=== PATIENT | female | born 1960 | race American Indian/Alaskan Native ===

== ENCOUNTER 2018-03-23 14:07 | Emergency (ER) | payer OTHER ==
[2018-03-23 14:17] VITALS: BP 134/83
[2018-03-23] MEDS ORDERED: TORADOL IM ONE (14:41)
--- NOTE | 2018-03-23 14:44 | Emergency Department Report ---
Chief Complaint: Extremity Injury, Lower Stated Complaint: LEFT HIP PAIN Time Seen by Provider: 03/23/18 14:25 - HPI History of Present Illness: 57-year-old after [place] female presents to the emergency department with complaint of left hip pain that has been going on since last night. The patient has a history of chronic back and hip pains and has been told in the past that it is all due to osteoarthritis. She usually gets a Toradol shot and another shot from her PCP, Dr. Summers. She also follows with a Dr. Kumar, orthopedics. She denies any recent trauma. Patient says she has not had any x- ray imaging of her hip in a long time. The pain worsens with movement and she is having difficulty bearing weight and with ambulation. - ROS Review of Systems: Positive for hip pain Negative for fever, numbness, paresthesias - Exam Vital Signs: Vital Signs 03/23/18 14:13 Temperature 98.6 F Pulse Rate 91 H Respiratory 18 Rate Blood Pressure 134/83 O2 Sat by Pulse 98 Oximetry Physical Exam: There is tenderness to palpation to the left hip. Heart and lung sounds are normal to auscultation. MSE screening note: Focused history and physical exam performed. Due to findings the following was ordered: Patient will have an x-ray of the left hip. She'll be given a Toradol shot. ED Disposition for MSE Condition: Stable
--- NOTE | 2018-03-23 14:52 | Emergency Department Report ---
ED Lower Extremity HPI - General Chief Complaint: Extremity Injury, Lower Stated Complaint: LEFT HIP PAIN Time Seen by Provider: 03/23/18 14:25 Source: patient Mode of arrival: Ambulatory Limitations: No Limitations - History of Present Illness Initial Comments: AC HIP PAIN SEES PCP AND ORTHO NO NEW FALL OTC MOTRIN USUALLY HELPS LAST PM IT DID NOT SHE GETS A TORADOL INJ AT ORTHO AND THAT LASTS HER MONTHS SHE SAYS SHE GETS ANOTHER INJECTION WHICH BASED ON WHAT PT STATES I SUSPECT IS JOINT INJECTION MD Complaint: other (AC HIP PAIN) -: Gradual Severity: moderate Improves With: NSAID, other (MOTRIN USUALLY HELPS LAST NIGHT DID NOT) Treatments Prior to Arrival: NSAIDS - Related Data Previous Rx's Medication Instructions Recorded Last Taken Type Ketorolac [Toradol] 10 mg PO Q8H PRN #10 tablet 03/23/18 Unknown Rx Allergies Allergy/AdvReac Type Severity Reaction Status Date / Time amoxicillin Allergy Unknown Verified 03/23/18 14:17 ED Review of Systems ROS: Stated complaint: LEFT HIP PAIN Other details as noted in HPI Comment: All other systems reviewed and negative Constitutional: denies: chills Eyes: denies: eye pain ENT: denies: ear pain Respiratory: denies: cough, orthopnea Cardiovascular: denies: chest pain, palpitations, dyspnea on exertion Endocrine: denies: excessive sweating, flushing, intolerance to cold Gastrointestinal: denies: abdominal pain, nausea, vomiting Genitourinary: denies: urgency, dysuria Musculoskeletal: as per HPI, arthralgia, other (HIP PAIN). denies: back pain, joint swelling, myalgia Skin: denies: rash, lesions Neurological: denies: headache, weakness Psychiatric: denies: anxiety, depression Hematological/Lymphatic: denies: easy bleeding ED Past Medical Hx - Past Medical History Hx Hypertension: Yes Hx Arthritis: Yes (in back) Additional medical history: recurrent left hip pain, PT r/t back pain - Surgical History Additional Surgical History: partial hysterectomy, R/L rotator cuff repair - Family History Family history: no significant - Social History Smoking Status: Never Smoker Substance Use Type: None - Medications Home Medications: Home Medications Medication Instructions Recorded Confirmed Last Taken Type Ketorolac [Toradol] 10 mg PO Q8H PRN #10 tablet 03/23/18 Unknown Rx ED Physical Exam - General Limitations: No Limitations General appearance: alert - Head Head exam: Present: normocephalic - Eye Eye exam: Present: PERRL - ENT ENT exam: Present: mucous membranes moist - Neck Neck exam: Present: normal inspection. Absent: tenderness, meningismus - Respiratory Respiratory exam: Present: normal lung sounds bilaterally - Cardiovascular Cardiovascular Exam: Present: regular rate, normal heart sounds - GI/Abdominal GI/Abdominal exam: Present: soft, normal bowel sounds - Rectal Rectal exam: Present: deferred - Extremities Exam Extremities exam: Present: normal inspection, normal capillary refill, other (L HIP PAIN; LIMITED ROM DUE TO PAIN. CAN WALK ). Absent: tenderness, pedal edema , joint swelling - Back Exam Back exam: Present: normal inspection. Absent: tenderness, CVA tenderness (R), CVA tenderness (L) - Neurological Exam Neurological exam: Present: alert, oriented X3, CN II-XII intact, motor sensory deficit - Psychiatric Psychiatric exam: Present: normal affect, normal mood - Skin Skin exam: Present: warm, dry, intact, normal color. Absent: rash ED Course Vital Signs 03/23/18 14:13 Temperature 98.6 F Pulse Rate 91 H Respiratory 18 Rate Blood Pressure 134/83 O2 Sat by Pulse 98 Oximetry - Reevaluation(s) Reevaluation #1: 03/23/18 15:38 REASSESSMENT WITH DEC IN PAIN W TORADOL INJECTION DISCUSSED USE OF PO TORADOL WITH PT WELL FOLLOW UP WITH ORTHO AND PCP FOR ONGOING CARE AND MANAGEMENT OF HER PAIN. ED Lower Extremity MDM - Radiology Data Radiology results: report reviewed, image reviewed - Medical Decision Making XRAY NO ACUTE PROCESS; DJD - Differential Diagnosis L HIP PAIN RO FRACTURE Critical care attestation.: If time is entered above; I have spent that time in minutes in the direct care of this critically ill patient, excluding procedure time. ED Disposition Clinical Impression: Chronic hip pain, Arthritis Disposition: TO HOME OR SELFCARE Is pt being admited?: No Does the pt Need Aspirin: No Condition: Stable Instructions: Chronic Pain (ED) Additional Instructions: FOLLOW UP WITH PCP AND ORTHO ACTIVITY TOLERATED MEDS PER ROUTINE DIET TOLERATED WARM COMPRESSES MAY HELP Prescriptions: Ketorolac [Toradol] 10 mg PO Q8H PRN #10 tablet PRN Reason: Pain Time of Disposition: 15:25
--- NOTE | 2018-03-23 15:19 | XRay Report ---
FINAL REPORT EXAM: XR HIP 2-3V LT HISTORY: left hip pain TECHNIQUE: AP view of pelvis and frogleg lateral view of left hip. PRIORS: None. FINDINGS: Degenerative changes in the bilateral hip joints and lumbosacral spine. Sclerotic changes also noted about the pubic symphysis region. No apparent fracture or dislocation. Soft tissues grossly unremarkable. IMPRESSION: 1. No acute osseous abnormality. 2. Degenerative changes.
== END 2018-03-23 15:59 | disposition home or self-care (01) ==
LOC: ED 14:07
DX: M13.852 Other specified arthritis, left hip (principal); G89.29 Other chronic pain; I10 Essential (primary) hypertension; Z90.711 Acquired absence of uterus with remaining cervical stump
CPT/HCPCS: 73502; 96372; 99283; J1885

== ENCOUNTER 2018-11-26 20:02 | Observation (INO) | payer OTHER ==
--- NOTE | 2018-11-26 20:56 | Emergency Department Report ---
Blank Doc - Documentation Documentation: pt presents with substernal CP that began three days ago describes it as a tightness states it lasts for a couple minutes no radiation of the pain (+) palpitations feels SOB when she has the pain (+) nausea no emesis PMHx GERD, HTN no personal hx of cardiac issues had a normal stress test 4 months ago former smoker quit 15 years ago occ drinker no drug use
[2018-11-26 21:33] LABS: Basophils # (Auto) 0.1 K/mm3 (0.0-0.1); Basophils % (Auto) 0.8 % (0.0-1.8); Eosinophils # (Auto) 0.1 K/mm3 (0.0-0.4); Eosinophils % (Auto) 2.3 % (0.0-4.3); Hemoglobin 12.1 gm/dl (10.1-14.3); Lymphocytes # (Auto) 2.8 K/mm3 (1.2-5.4); Lymphocytes % (Auto) 42.1 % (13.4-35.0); Mean Corpuscular HGB Conc 35 % (30-34); Mean Corpuscular Volume 97 fl (79-97); Monocytes # (Auto) 0.7 K/mm3 (0.0-0.8); Monocytes % (Auto) 10.9 % (0.0-7.3); Platelet Count 250 K/mm3 (140-440); Red Blood Count 3.61 M/mm3 (3.65-5.03); Red Cell Distribution Width 12.9 % (13.2-15.2)
[2018-11-26 21:44] LABS: INR 0.91 (0.87-1.13)
[2018-11-26 21:45] LABS: Partial Thromboplastin Time 28.8 Sec. (24.2-36.6)
[2018-11-26 21:50] LABS: BUN/Creatinine Ratio 34; Blood Urea Nitrogen 17 mg/dL (7-17); Calcium 9.1 mg/dL (8.4-10.2); Hemolysis Index 2
--- NOTE | 2018-11-26 22:20 | Emergency Department Report ---
ED Chest Pain HPI - General Chief Complaint: Chest Pain Stated Complaint: CHEST PAIN Time Seen by Provider: 11/26/18 20:45 Source: patient Mode of arrival: Ambulatory Limitations: No Limitations - History of Present Illness Initial Comments: Patient is a 57-year-old female that presents emergency room with complaints of chest pain and shortness of breath. Patient states her chest. It has been going on for approximate 4 days and is intermittent. Patient states it came back approximately 6 hours ago. Patient states her chest pain is better with re st and worse with exertion. Patient states her chest pain is a 6 out of 10. Patient states she has some nausea. Patient states as diaphoresis. Patient states her shortness of breath or is worse with exertion. Patient states she had a recent long travel in a car MD Complaint: chest pain Onset: during rest Pain Location: substernal, left chest Pain Radiation: none Severity: moderate Severity scale (0 -10): 6 Quality: heaviness, sharp Consistency: intermittent Improves With: rest Worsens With: exertion Context: recent travel re: nausea, diaphoresis, dyspnea. denies: vomting, sense of impending doom Other Symptoms: denies: cough, fever, syncope, rash, acid taste in mouth, leg swelling, palpitations, burping Treatments Prior to Arrival: none Aspirin use within the Past 7 Days: (0) No - Related Data On Oral Contraceptives: No Home Medications Medication Instructions Recorded Confirmed Last Taken hydroCHLOROthiazide [Hctz] 12.5 mg PO QDAY 11/27/18 11/27/18 Unknown Allergies Allergy/AdvReac Type Severity Reaction Status Date / Time amoxicillin Allergy Unknown Verified 03/23/18 14:17 Heart Score - HEART Score History: Moderately suspicious EKG: Normal Age: 45-65 Risk factors: No known risk factors Troponin: < normal limit HEART Score: 2 ED Review of Systems ROS: Stated complaint: CHEST PAIN Other details as noted in HPI Constitutional: denies: chills, fever Eyes: denies: eye pain, eye discharge, vision change ENT: denies: ear pain, throat pain Respiratory: shortness of breath. denies: cough, wheezing Cardiovascular: chest pain, dyspnea on exertion. denies: palpitations Endocrine: no symptoms reported Gastrointestinal: denies: abdominal pain, nausea, diarrhea Genitourinary: denies: urgency, dysuria, discharge Musculoskeletal: denies: back pain, joint swelling, arthralgia Skin: denies: rash, lesions Neurological: denies: headache, weakness, paresthesias Psychiatric: denies: anxiety, depression Hematological/Lymphatic: denies: easy bleeding, easy bruising ED Past Medical Hx - Past Medical History Previous Medical History?: Yes Hx Hypertension: Yes Hx GERD: Yes Hx Arthritis: Yes (in back) Additional medical history: recurrent left hip pain, PT r/t back pain - Surgical History Past Surgical History?: Yes Additional Surgical History: partial hysterectomy, R/L rotator cuff repair - Family History Family history: no significant - Social History Smoking Status: Former Smoker Substance Use Type: None - Medications Home Medications: Home Medications Medication Instructions Recorded Confirmed Last Taken Type hydroCHLOROthiazide [Hctz] 12.5 mg PO QDAY 11/27/18 11/27/18 Unknown History ED Physical Exam - General Limitations: No Limitations General appearance: alert, in no apparent distress - Head Head exam: Present: atraumatic, normocephalic - Eye Eye exam: Present: normal appearance - ENT ENT exam: Present: mucous membranes moist - Neck Neck exam: Present: normal inspection - Respiratory Respiratory exam: Present: normal lung sounds bilaterally. Absent: respiratory distress, wheezes, rales, rhonchi, chest wall tenderness - Cardiovascular Cardiovascular Exam: Present: regular rate, normal rhythm. Absent: systolic murmur, diastolic murmur, rubs, gallop - GI/Abdominal GI/Abdominal exam: Present: soft, normal bowel sounds. Absent: distended, tenderness - Extremities Exam Extremities exam: Present: normal inspection - Back Exam Back exam: Present: normal inspection - Neurological Exam Neurological exam: Present: alert, oriented X3 - Psychiatric Psychiatric exam: Present: normal affect, normal mood - Skin Skin exam: Present: warm, dry, intact, normal color. Absent: rash ED Course Vital Signs 11/26/18 11/26/18 11/26/18 20:56 22:25 23:00 Temperature 98.4 F 98 F Pulse Rate 76 69 60 Respiratory 16 16 10 L Rate Blood Pressure 126/62 Blood Pressure 115/58 119/67 [Left] O2 Sat by Pulse 99 99 98 Oximetry - Reevaluation(s) Reevaluation #1: Discussed all results with patient. Patient will be admitted to the hospitalist service. Patient agrees to plan of care. 11/26/18 23:31 - Consultations Consultation #1: Hospitalist consulted for admission. Hospitalist to admit patient. Hospitalist to assume care patient. 11/26/18 23:37 ROCIO score - Rocio Score Age > 65: (0) No Aspirin use within the Past 7 Days: (0) No 3 or more CAD Risk Factors: (0) No 2 or more Angina events in past 24 hrs: (1) Yes Known CAD with more than 50% Stenosis: (0) No Elevated Cardiac Markers: (0) No ST Deviation Greater than 0.5mm: (0) No ROCIO Score: 1 ED Medical Decision Making - Lab Data Result diagrams: 11/26/18 21:04 11/26/18 21:04 - EKG Data -: EKG Interpreted by Me EKG shows normal: sinus rhythm, axis, intervals, QRS complexes, ST-T waves Rate: normal - Radiology Data Radiology results: report reviewed PROCEDURE: XR CHEST ROUTINE 2V TECHNIQUE: PA and lateral chest radiographs were obtained. HISTORY: Chest Pain COMPARISONS: None. FINDINGS: Heart: Normal. Mediastinum/Vessels: Normal. Lungs/Pleural space: Lungs are hyperinflated. There are no confluent infiltrates or mass lesions. Pleural spaces are clear.. Bony thorax: No acute osseous abnormality. IMPRESSION: COPD No acute pulmonary process. - Medical Decision Making Patient is a 57-year-old female that presents to [facility] with chest pain, SALMERON and shortness of breath. Patient was admitted to the hospitalist service. Patient's initial cardiac workup negative. Troponin negative. EKG normal. Chest x-ray negative except for COPD changes. Patient had a d-dimer is negative. - Differential Diagnosis SOB. SALMERON. Chest pain. ACS. PE. Critical Care Time: Yes Critical care attestation.: If time is entered above; I have spent that time in minutes in the direct care of this critically ill patient, excluding procedure time. Critical Care Time: 35 minutes ED Disposition Clinical Impression: SOB (shortness of breath), SALMERON (dyspnea on exertion) Chest pain Qualifiers: Chest pain type: unspecified Qualified Code(s): R07.9 - Chest pain, unspecified Disposition: OP ADMIT IP TO THIS HOSP Is pt being admited?: Yes Does the pt Need Aspirin: No Condition: Critical Time of Disposition: 23:36
--- NOTE | 2018-11-26 23:07 | XRay Report ---
PROCEDURE: XR CHEST ROUTINE 2V TECHNIQUE: PA and lateral chest radiographs were obtained. HISTORY: Chest Pain COMPARISONS: None. FINDINGS: Heart: Normal. Mediastinum/Vessels: Normal. Lungs/Pleural space: Lungs are hyperinflated. There are no confluent infiltrates or mass lesions. Pl eural spaces are clear.. Bony thorax: No acute osseous abnormality. IMPRESSION: COPD No acute pulmonary process. This document is electronically signed by Fran Shaw MD., November 26 2018 11:05:57 PM ET
--- NOTE | 2018-11-26 23:47 | History and Physical Report ---
History of Present Illness Date of examination: 11/26/18 History of present illness: 57 -year-old man with a history of hypertension, GERD comes to the emergency room with complaints of chest pain, located in the epigastric area that started 4 days ago. She states that it's sharp, tight sensation, intermittent every 2 minutes, intensity 5/10, no radiation, cannot identify exacerbating factors. Admits to nausea, shortness of breath, palpitation, no diaphoresis. She had a stress test 5 months ago at [facility] which was negative. She is noncompliant with medication for GERD Review of systems Constitutional: no weight loss, chills, fever Ears, eyes, nose, mouth and throat: no nasal congestion, no nasal discharge, no sinus pressure, no vision change, no red eye. Neck: No neck pain or rigidity. Cardiovascular:+palpitations Respiratory: no cough, +shortness of breath Gastrointestinal: no hematochezia, abdominal pain Genitourinary : no frequency , no hematuria Musculoskeletal: no joint swelling or muscle ache Integumentary: no rash, no pruritis Neurological: no parathesias, no focal weakness Endocrine: no cold or heat intolerance, no polyuria or polydipsia Hematologic/Lymphatic: no easy bruising, no easy bleeding, no gland swelling Allergic/Immunologic: no urticaria, no angioedema. PAST MEDICAL HISTORY:hypertension, GERD PAST SURGICAL HISTORY: Rotator cuff partial hysterectomy SOCIAL HISTORY: Denies alcohol, drugs, tobacco FAMILY HISTORY: Hypertension Medications and Allergies Allergies Allergy/AdvReac Type Severity Reaction Status Date / Time amoxicillin Allergy Unknown Verified 03/23/18 14:17 Home Medications Medication Instructions Recorded Confirmed Last Taken Type Pantoprazole [Protonix] 40 mg PO QDAY #14 tablet 11/27/18 Unknown Rx hydroCHLOROthiazide [Hctz] 12.5 mg PO QDAY 11/27/18 11/27/18 Unknown History Exam - Physical Exam Narrative exam: General Apperance: The patient lying in bed, breathing comfortable HEENT: Normocephalic, atraumatic. Pupils equally round and reactive to light, EOMI, no sclericterus or JVD or thyromegaly or nodule. , no carotid bruit, mucous membranes moist, no exudate or erythema Heart: S1-S2, regular is rhythm Lungs: Clear to auscultation bilaterally, breathing comfortable Abdomen: Positive bowel sounds, soft, nontender, nondistended, no organomegaly Extremities: No edema cyanosis clubbing Skin: no rash, nodule, warm and dry Neuro: cranial nerves 2-12 intact, speech is fluent, motor/sensory intact - Constitutional Vitals: Temp Pulse Resp BP Pulse Ox 98 F 60 10 L 126/62 98 11/26/18 22:25 11/26/18 23:00 11/26/18 23:00 11/26/18 23:00 11/26/18 23:00 Results - Labs CBC & Chem 7: 11/27/18 05:37 11/27/18 05:37 Labs: Abnormal lab results 11/26/18 11/26/18 Range/Units 21:04 21:04 RBC 3.61 L (3.65-5.03) M/mm3 MCH 34 H (28-32) pg MCHC 35 H (30-34) % RDW 12.9 L (13.2-15.2) % Lymph % (Auto) 42.1 H (13.4-35.0) % [place] % (Auto) 10.9 H (0.0-7.3) % Creatinine 0.5 L (0.7-1.2) mg/dL Glucose 102 H (65-100) mg/dL - Imaging and Cardiology Chest x-ray: report reviewed Assessment and Plan Assessment Atypicl chest pain hypertension GERD Plan Admit to medicine Check cardiac enzymes, consult cardiology Start prevacid, asa, DVT prophalaxis Continue appropriate outpatient medications
[2018-11-27] MEDS ORDERED: ZOFRAN IV PRN (00:38)
[2018-11-27] MEDS ORDERED: SODIUM CHLORIDE FLUSH SYRINGE 10 ML IV PRN (00:38)
[2018-11-27] MEDS ORDERED: TYLENOL PO PRN (00:38)
[2018-11-27] MEDS ORDERED: MORPHINE IV PRN (00:38)
[2018-11-27] MEDS ORDERED: AMBIEN PO PRN (00:51)
[2018-11-27 06:11] LABS: Hematocrit 32.8 % (30.3-42.9); Hemoglobin 11.6 gm/dl (10.1-14.3); Mean Corpuscular HGB Conc 36 % (30-34); Mean Corpuscular Volume 96 fl (79-97); Platelet Count 227 K/mm3 (140-440)
[2018-11-27 06:35] LABS: BUN/Creatinine Ratio 28; Blood Urea Nitrogen 14 mg/dL (7-17); Calcium 8.8 mg/dL (8.4-10.2); Hemolysis Index 7
[2018-11-27] MEDS ORDERED: K-DUR PO NR (09:00)
[2018-11-27 09:13] LABS: Basophils % (Manual) 0 % (0.0-1.8); Platelet Estimate Consistent w Auto; RBC Morphology Normal; Total Cells Counted 100
[2018-11-27] MEDS ORDERED: SODIUM CHLORIDE FLUSH SYRINGE 10 ML IV SCH (10:00)
[2018-11-27] MEDS ORDERED: HCTZ PO SCH (10:00)
[2018-11-27] MEDS ORDERED: ASPIRIN PO SCH (10:00)
[2018-11-27] MEDS ORDERED: PROTONIX PO SCH (10:00)
[2018-11-27] MEDS ORDERED: LOVENOX SUB-Q SCH ×2 (10:00)
--- NOTE | 2018-11-27 10:22 | Consultation ---
History of Present Illness Consult date: 11/27/18 Consult reason: chest pain History of present illness: This is a 57 year old woman with chronic hypertension who presented with chest pain, admitted for further evaluation. Patient relates her chest pain as symptoms similar to GERD. She denies unusual shortness of breath, denies palpitations and she had no syncope. Troponins are negative thus far and her ECG is benign, a normal sinus rhythm. A cardiac consultation has been requested for chest pain evaluation and recommendations. Medications and Allergies Allergies Allergy/AdvReac Type Severity Reaction Status Date / Time amoxicillin Allergy Unknown Verified 03/23/18 14:17 Home Medications Medication Instructions Recorded Confirmed Last Taken Type hydroCHLOROthiazide [Hctz] 12.5 mg PO QDAY 11/27/18 11/27/18 Unknown History Active Meds: Active Medications Acetaminophen (Tylenol) 650 mg PO Q4H PRN PRN Reason: Pain MILD(1-3)/Fever >100.5/BARRIGA Aspirin (Aspirin) 325 mg PO QDAY DOMINIC Enoxaparin Sodium (Lovenox) 40 mg SUB-Q QDAY@1000 DOMINIC Hydrochlorothiazide (Hctz) 12.5 mg PO QDAY DOMINIC Morphine Sulfate (Morphine) 2 mg IV Q4H PRN PRN Reason: Pain, Moderate (4-6) Ondansetron HCl (Zofran) 4 mg IV Q8H PRN PRN Reason: Nausea And Vomiting Pantoprazole Sodium (Protonix) 40 mg PO QDAY DOMINIC Sodium Chloride (Sodium Chloride Flush Syringe 10 Ml) 10 ml IV BID DOMINIC Sodium Chloride (Sodium Chloride Flush Syringe 10 Ml) 10 ml IV PRN PRN PRN Reason: LINE FLUSH Zolpidem Tartrate (Ambien) 5 mg PO QHS PRN PRN Reason: Sleep Physical Examination Vital Signs Temp Pulse Resp BP Pulse Ox 98.4 F 76 16 115/58 99 11/26/18 20:56 11/26/18 20:56 11/26/18 20:56 11/26/18 20:56 11/26/18 20:56 General appearance: no acute distress HEENT: Positive: PERRL Cardiac: Positive: Reg Rate and Rhythm Lungs: Positive: Normal Breath Sounds Neuro: Positive: Grossly Intact Extremities: Absent: edema Results 11/27/18 05:37 11/27/18 05:37 Coagulation 11/26/18 Range/Units 21:04 PT 12.8 (12.2-14.9) Sec. INR 0.91 (0.87-1.13) APTT 28.8 (24.2-36.6) Sec. CBC 11/26/18 11/27/18 Range/Units 21:04 05:37 WBC 6.6 5.2 (4.5-11.0) K/mm3 RBC 3.61 L 3.40 L (3.65-5.03) M/mm3 Hgb 12.1 11.6 (10.1-14.3) gm/dl Hct 35.0 32.8 (30.3-42.9) % Plt Count 250 227 (140-440) K/mm3 Lymph # 2.8 (1.2-5.4) K/mm3 [place] # 0.7 (0.0-0.8) K/mm3 Eos # 0.1 (0.0-0.4) K/mm3 Baso # 0.1 (0.0-0.1) K/mm3 Comprehensive Metabolic Panel 11/26/18 11/27/18 Range/Units 21:04 05:37 Sodium 139 142 (137-145) mmol/L Potassium 3.8 3.3 L (3.6-5.0) mmol/L Chloride 101.1 103.9 (98-107) mmol/L Carbon Dioxide 27 28 (22-30) mmol/L BUN 17 14 (7-17) mg/dL Creatinine 0.5 L 0.5 L (0.7-1.2) mg/dL Glucose 102 H 107 H (65-100) mg/dL Calcium 9.1 8.8 (8.4-10.2) mg/dL Assessment and Plan Chest pain, atypical Hypertension Normal stress thallium test 01/2017. Plan: We will obtain a treadmill test today. Results are pending.
[2018-11-27 13:00] VITALS: BP 91/34
--- NOTE | 2018-11-27 15:05 | Discharge Summary ---
Providers - Providers Date of Admission: 11/26/18 23:47 Date of discharge: 11/27/18 Attending physician: IMANI BONE 11/27/18 05:54 Consult to Physician [CONS] Routine Comment: Consulting Provider: RAKEL SAHU Physician Instructions: Reason For Exam: cp Primary care physician: PAYAM TOBIN Hospitalization Condition: Stable Hospital course: Patient is a 57 yo woman with a history of hypertension and GERD who presented with Chest pains. She underwent a thorough cardiac evaluation with negative Exercise stress test and Cardiology consultation. Discharge Diagnoses: Chest pains most likely GERD related hypertension GERD Disposition: DC- TO HOME OR SELFCARE Time spent for discharge: 31 minutes Core Measure Documentation - Palliative Care Palliative Care/ Comfort Measures: Not Applicable - Core Measures Any of the following diagnoses?: none - VTE Discharge Requirements Deep Vein Thrombosis/Pulmonary Embolism Present on Admission: No Has pt received <5 days of overlap therapy or INR<2.0: No Anticoagulant overlap therapy prescribed at discharge: No Contraindication No Overlap Therapy order at DC: Not Indicated Exam - Physical Exam Narrative exam: Gen: WDWN, NAD, Awake, Alert, Orientated x 3 HEENT: NCAT, EOMI, PERRL, OP Clear Neck: supple, no adenopathy, no thyromegaly, no JVD CVS/Heart: RRR, normal S1S2, pulses present bilaterally Chest/Lungs: CTA B, Symmetrical chest expansion, good air entry bilaterally GI/Abdomen: soft, NTND, good bowel sounds, no guarding or rebound /Bladder: no suprapubic tenderness, no CVA or paraspinal tenderness Extermity/Skin: no c/c/e, no obvious rash MSK: FROM x 4 Neuro: CN 2-12 grossly intact, no new focal deficits Psych: calm - Constitutional Vitals: Temp Pulse Resp BP Pulse Ox 98.6 F 74 16 91/34 97 11/27/18 12:56 11/27/18 12:56 11/27/18 12:56 11/27/18 12:56 11/27/18 12:56 Plan Activity: other (no strenous activity unless cleared by PCP, return to work Saturday) Diet: low salt Follow up with: PAYAM TOBIN MD [Primary Care Provider] - 7 Days Forms: Work/School Release Form
--- NOTE | 2018-11-27 20:19 | Treadmill Report ---
EXERCISE STRESS TEST REASON FOR TEST: Chest pain. The patient exercised for 9 minutes of a Ronnie protocol, completing stage 3 and achieving 10 mets. Peak heart rate was 160 beats per minute. Peak blood pressure was 164 systolic. There was no chest pain. Test was stopped for fatigue. Baseline ECG was sinus rhythm. With exercise, there were no ST changes of ischemia. No significant dysrhythmias were noted. CONCLUSION: 1. Very good exercise capacity. 2. No chest pain. 3. No ST changes of ischemia. 4. No significant dysrhythmias. 5. This is a normal exercise ECG test. JOB# [id number] CA/NTS
== END 2018-11-27 16:10 | disposition home or self-care (01) ==
LOC: ED 20:02 → 3A 23:47 → INTOOBSV 23:47
PROVIDERS: ADMIT Internal Medicine; ATTEND Internal Medicine
DX: R07.89 Other chest pain (principal); I10 Essential (primary) hypertension; K21.9 Gastro-esophageal reflux disease without esophagitis; Z90.710 Acquired absence of both cervix and uterus; R00.2 Palpitations
CPT/HCPCS: 36415; 71046; 80048; 83735; 83880; 84100; 84484; 85007; 85025; 85379; 85610; 85730; 93005; 93010; 93017; 96372; 99291; G0378; J1650

== ENCOUNTER 2020-09-14 23:42 | Emergency (ER) | payer OTHER ==
[2020-09-14 23:53] VITALS: BP 157/58
[2020-09-15] MEDS ORDERED: dexAMETHasone 20 MG/5 ML VIAL IM ONE (00:39)
[2020-09-15] MEDS ORDERED: oxyCODONE /ACETAMINOPHEN 5-325MG TAB PO ONE (00:39)
[2020-09-15] MEDS ORDERED: ONDANSETRON 4 MG ODT TAB PO ONE (00:39)
[2020-09-15] MEDS ORDERED: IBUPROFEN 600 MG TAB PO ONE (00:40)
--- NOTE | 2020-09-15 01:18 | Emergency Department Report ---
ED Extremity Problem HPI - General Chief complaint: Extremity Injury, Upper Stated complaint: LEFT ARM PAIN Source: patient Mode of arrival: Ambulatory Limitations: No Limitations - History of Present Illness Initial comments: Patient is a 59-year-old -[place] female with a history of chronic osteoarthritis, GERD, chronic low back pain, and hypertension who presents to the ED with complaint of acute onset persistent nontraumatic left shoulder joint pain for the last 3 days. Patient states that the pain initially was mild but has progressively got worse. Patient states that in active range of motion of left shoulder makes the pain worse such that she is unable to abduct her left shoulder. Patient denies fall, traumatic injury, heavy lifting, numbness and tingling or weakness of upper extremities bilaterally, neck pain, chest pain, shortness of breath, back pain, abdominal pain, fever, chills, cough, heavy lifting or change in vision. MD Complaint: extremity pain (Left shoulder pain), joint paint (Left shoulder pain) -: Sudden, days(s) (3) Location: left (Left shoulder), upper extremity (Left shoulder pain) History of Same: Yes -: No myalgia, Yes arthralgia, No fever, No associated dyspnea (Left shoulder pain), No associated chest pain Radiation: none Severity scale (0 -10): 8 Quality: aching, sharp Consistency: constant Improves with: nothing Worsens with: weight bearing, exertion, palpation Associated Symptoms: denies other symptoms, myalgias, arthralgias (Left shoulder pain). denies: chest pain, shortness of breath, fever, rash, other - Related Data Home Medications Medication Instructions Recorded Confirmed Last Taken hydroCHLOROthiazide [Hctz] 12.5 mg PO QDAY 11/27/18 11/27/18 Unknown Previous Rx's Medication Instructions Recorded Last Taken Type Pantoprazole [Protonix] 40 mg PO QDAY #14 tablet 11/27/18 Unknown Rx Naproxen 500 mg PO Q12H PRN #30 tablet 09/15/20 Unknown Rx predniSONE [Deltasone] 40 mg PO QDAY #10 tab 09/15/20 Unknown Rx traMADoL [Ultram] 50 mg PO Q6HR PRN #12 tablet 09/15/20 Unknown Rx Allergies Allergy/AdvReac Type Severity Reaction Status Date / Time amoxicillin Allergy Unknown Verified 03/23/18 14:17 ED Review of Systems ROS: Stated complaint: LEFT ARM PAIN Other details as noted in HPI Constitutional: denies: chills, fever Eyes: denies: eye pain, eye discharge, vision change ENT: denies: ear pain, throat pain Respiratory: denies: cough, shortness of breath, wheezing Cardiovascular: denies: chest pain, palpitations Endocrine: no symptoms reported Gastrointestinal: denies: abdominal pain, nausea, vomiting, diarrhea Genitourinary: denies: urgency, dysuria, discharge Musculoskeletal: arthralgia (Left shoulder pain). denies: back pain, joint swelling Skin: denies: rash, lesions Neurological: denies: headache, weakness, paresthesias Psychiatric: denies: anxiety, depression Hematological/Lymphatic: denies: easy bleeding, easy bruising ED Past Medical Hx - Past Medical History Hx Hypertension: Yes Hx Congestive Heart Failure: No Hx Diabetes: No Hx GERD: Yes Hx Arthritis: Yes (shoulders and back) Hx Asthma: No Hx COPD: No Hx HIV: No Additional medical history: recurrent left hip pain, PT r/t back pain - Surgical History Additional Surgical History: partial hysterectomy, R/L rotator cuff repair - Social History Smoking Status: Never Smoker - Medications Home Medications: Home Medications Medication Instructions Recorded Confirmed Last Taken Type Pantoprazole [Protonix] 40 mg PO QDAY #14 tablet 11/27/18 Unknown Rx hydroCHLOROthiazide [Hctz] 12.5 mg PO QDAY 11/27/18 11/27/18 Unknown History Naproxen 500 mg PO Q12H PRN #30 tablet 09/15/20 Unknown Rx predniSONE [Deltasone] 40 mg PO QDAY #10 tab 09/15/20 Unknown Rx traMADoL [Ultram] 50 mg PO Q6HR PRN #12 tablet 09/15/20 Unknown Rx ED Physical Exam - General Limitations: No Limitations General appearance: alert, in no apparent distress - Head Head exam: Present: atraumatic, normocephalic, normal inspection - Eye Eye exam: Present: normal appearance, PERRL, EOMI Pupils: Present: normal accommodation - ENT ENT exam: Present: normal exam, normal orophraynx, mucous membranes moist, TM's normal bilaterally, normal external ear exam - Neck Neck exam: Present: normal inspection, full ROM. Absent: tenderness - Respiratory Respiratory exam: Present: normal lung sounds bilaterally. Absent: respiratory distress, wheezes, rales, stridor, chest wall tenderness, accessory muscle use, decreased breath sounds - Cardiovascular Cardiovascular Exam: Present: regular rate, normal rhythm, normal heart sounds. Absent: systolic murmur, diastolic murmur, rubs, gallop - GI/Abdominal GI/Abdominal exam: Present: soft, normal bowel sounds. Absent: tenderness, guarding, rebound, hyperactive bowel sounds, organomegaly, mass - Extremities Exam Extremities exam: Present: normal inspection, full ROM, tenderness (Palpable left shoulder tenderness with limited range of motion due to pain), normal capillary refill. Absent: pedal edema, joint swelling, calf tenderness - Back Exam Back exam: Present: normal inspection, full ROM. Absent: tenderness, CVA tenderness (R), CVA tenderness (L), muscle spasm, paraspinal tenderness - Neurological Exam Neurological exam: Present: alert, oriented X3, CN II-XII intact, normal gait, reflexes normal - Psychiatric Psychiatric exam: Present: normal affect, normal mood - Skin Skin exam: Present: warm, dry, intact, normal color. Absent: rash ED Course Vital Signs 09/14/20 23:51 Temperature 97.9 F Pulse Rate 76 Respiratory 16 Rate Blood Pressure 157/58 O2 Sat by Pulse 99 Oximetry ED Medical Decision Making - Medical Decision Making This is a 59-year-old -[place] female with a history of chronic osteoarthritis, GERD, chronic low back pain, and hypertension who presents to the ED with complaint of acute onset persistent nontraumatic left shoulder joint pain for the last 3 days. Patient states that the pain initially was mild but has progressively got worse. Patient states that in active range of motion of left shoulder makes the pain worse such that she is unable to abduct her left shoulder. In the ED, patient is alert and oriented x3 and is not in any distress. Patient was treated for pain in the ED and based on the physical exam findings, patient symptoms are likely due to acute exacerbation of her chronic osteoarthritis versus left shoulder bursitis or tendinitis. On reevaluation, patient's pain is well controlled medications. Patient will discharge home on pain medications and advised to follow-up with her primary care physician in 5 to 7 days for reevaluation. Patient was advised return to the ED immediately if symptoms get worse. - Differential Diagnosis Osteoarthritis; bursitis; tendinitis; muscle strain; muscle spasm Critical care attestation.: If time is entered above; I have spent that time in minutes in the direct care of this critically ill patient, excluding procedure time. ED Disposition Clinical Impression: Left shoulder tendonitis, Bursitis of left shoulder Muscle strain of left shoulder Qualifiers: Encounter type: initial encounter Qualified Code(s): S46.912A - Strain of unspecified muscle, fascia and tendon at shoulder and upper arm level, left arm, initial encounter Disposition: TO HOME OR SELFCARE Is pt being admited?: No Does the pt Need Aspirin: No Condition: Stable Instructions: Muscle Strain, [id number], Bursitis, [id number], Shoulder Impingement Syndrome Additional Instructions: Take medication with food, drink plenty of fluids and follow-up with your primary care physician in 7 to 10 days for reevaluation. Return to the ED immediately if symptoms get worse. Prescriptions: predniSONE [Deltasone] 40 mg PO QDAY #10 tab Naproxen 500 mg PO Q12H PRN #30 tablet PRN Reason: Pain , Severe (7-10) traMADoL [Ultram] 50 mg PO Q6HR PRN #12 tablet PRN Reason: Pain Referrals: RAEANN JARAMILLO MD [Staff Physician] - 3-5 Days Time of Disposition: 01:19 Print Language: TRISTANIAN
== END 2020-09-15 01:50 | disposition home or self-care (01) ==
LOC: ED 23:42
DX: S46.912A Strain of unspecified muscle, fascia and tendon at shoulder and upper arm level, left arm, initial encounter (principal); I10 Essential (primary) hypertension; K21.9 Gastro-esophageal reflux disease without esophagitis; J45.909 Unspecified asthma, uncomplicated; Z90.710 Acquired absence of both cervix and uterus; Z79.899 Other long term (current) drug therapy; Z88.1 Allergy status to other antibiotic agents; X50.9XXA Other and unspecified overexertion or strenuous movements or postures, initial encounter; Y93.89 Activity, other specified; Y92.89 Other specified places as the place of occurrence of the external cause; Y99.8 Other external cause status
CPT/HCPCS: 96372; 99282; J1100; Q0162